=== PATIENT | female | born 1930 | race Caucasian/White ===

== ENCOUNTER 2021-12-02 08:21 | Inpatient (IN) | payer OTHER, BC ==
[2021-12-02] MEDS ORDERED: SODIUM CHLORIDE 1,000 ML IV SCH (08:30)
[2021-12-02 08:52] LABS: INR 1.07 (0.83-1.09); PROTHROMBIN TIME (PATIENT) 12.3 SEC (9.7-13.0)
[2021-12-02 08:54] LABS: ACTIVATED PTT 29.2 SECONDS (25.2-36.5)
[2021-12-02 09:00] LABS: ALBUMIN 3.6 g/dl (3.4-5.0); BILIRUBIN,TOTAL 0.8 mg/dl (0.2-1); CALCIUM 9.3 mg/dl (8.5-10); CREATININE 0.8 mg/dl (0.55-1.3); MAGNESIUM 1.8 mg/dL (1.8-2.4); PHOSPHOROUS 3.7 mg/dl (2.5-4.9); TOT PROT 6.1 g/dl (6.4-8.2)
[2021-12-02] MEDS ORDERED: SODIUM CHLORIDE 1,000 ML IV STA (09:01)
[2021-12-02 09:05] LABS: HEMATOCRIT 38.4 % (32.4-45.2); HEMOGLOBIN 13.1 G/dL (10.7-15.3); MCH 32.4 pg (25.7-33.7); MCHC 34.2 g/dl (32.0-36.0); MEAN CELL VOLUME 94.7 fl (80-96); MEAN PLT VOLUME 8.2 fl (7.5-11.1); PLATELET COUNT 213.7 10^3/uL (134-434); RBC 4.05 10^6/uL (3.60-5.2); RDW 14.2 % (11.6-15.6); WHITE BLOOD COUNT 7.5 10^3/uL (4.0-10.8)
[2021-12-02 09:58] LABS: EPITHELIAL CELLS MANY /hpf
[2021-12-02 10:16] LABS: PLATELET ESTIMATE ADEQUATE
[2021-12-02 11:49] LABS: VENOUS BASE EXCESS -1.8 mmol/L (-2-2); VENOUS O2 SATURATION 91.4 % (70-80); VENOUS PH 7.359 (7.310-7.410)
[2021-12-02 12:02] LABS: LACTIC ACID 3.1 mmol/L (0.4-2.0)
[2021-12-02 14:02] VITALS: BMI 26.2
[2021-12-02] MEDS: LACTOBACILLUS ACIDOPHILUS 1 TABLET PO SCH (16:00)
[2021-12-02] MEDS: CEFTRIAXONE 1 GM in DEXTROSE 5%-WATER - 50 ML IVPB SCH (16:00)
[2021-12-02] MEDS: CARBIDOPA/LEVODOPA 10/100 TABLET (FP) PO SCH ×2 (16:49→21:05)
[2021-12-02] MEDS: ATORVASTATIN CA 40 MG TABLET (FP) PO SCH (22:00)
[2021-12-03] MEDS: DOCUSATE SODIUM 100 MG CAPSULE (FP) PO SCH ×2 (00:03→22:01)
[2021-12-03] MEDS ORDERED: CLOPIDOGREL BISULFATE 300 MG TABLET PO ONE (07:38)
[2021-12-03] MEDS ORDERED: ASPIRIN 325 MG TABLET PO ONE (07:38)
[2021-12-03 08:42] LABS: BASO % 0.4 % (0-2.0); CALCIUM 8.6 mg/dL (8.5-10.1); EOS % 0.9 % (0-4.5); HEMATOCRIT 34.6 % (32.4-45.2); HEMOGLOBIN 11.3 GM/dL (10.7-15.3); MCHC 32.8 g/dl (32.0-36.0); MEAN CELL VOLUME 94.5 fl (80-96); MEAN PLT VOLUME 9.4 fl (7.5-11.1); MONO % 7.2 % (3.8-10.2); NEUT % 81.5 % (42.8-82.8); PLATELET COUNT 184 10^3/uL (134-434); RBC 3.66 M/mm3 (3.60-5.2); RDW 13.6 % (11.6-15.6); WHITE BLOOD COUNT 8.9 K/mm3 (4.0-10.0)
[2021-12-03 08:44] LABS: BLOOD UREA NITROGEN 19.8 mg/dL (7-18); MAGNESIUM 1.8 mg/dL (1.8-2.4)
[2021-12-03 08:47] LABS: CREATININE 0.7 mg/dL (0.55-1.3); PHOSPHOROUS 2.4 mg/dL (2.5-4.9)
[2021-12-03 08:48] LABS: BILIRUBIN,TOTAL 0.5 mg/dL (0.2-1); TOT PROT 5.7 g/dl (6.4-8.2)
[2021-12-03 08:50] LABS: N-TERMINAL BNP 895.9 pg/ml (5-450)
[2021-12-03] MEDS ORDERED: ENOXAPARIN NA (PORCINE) 40 MG/0.4 ML DISP.SYRIN SQ SCH (10:00)
[2021-12-03] MEDS: CEFTRIAXONE 1 GM in DEXTROSE 5%-WATER - 50 ML IVPB SCH (10:04)
[2021-12-03] MEDS: SERTRALINE HCL 50 MG TABLET (FP) PO SCH (10:04)
[2021-12-03] MEDS: LACTOBACILLUS ACIDOPHILUS 1 TABLET PO SCH (10:04)
[2021-12-03] MEDS ORDERED: HEPARIN NA (PORCINE) 5,000 UNITS/ML 1ML VIAL IVPUSH PRN ×2 (11:00)
[2021-12-03] MEDS: CARBIDOPA/LEVODOPA 10/100 TABLET (FP) PO SCH ×4 (11:47→22:00)
[2021-12-03] MEDS: RIVASTIGMINE 9.5 MG/24 HOURS TRANSDERMAL PATCH TD SCH (11:48)
[2021-12-03] MEDS: METOPROLOL TARTRATE 25 MG TABLET (FP) PO SCH ×3 (11:50→22:01)
[2021-12-03] MEDS: HEPARIN - 25,000 UNIT in SODIUM CHLORIDE 495 ML IV SCH ×2 (12:00→21:00)
[2021-12-03] MEDS ORDERED: LOSARTAN POTASSIUM 25 MG TABLET PO SCH (22:00)
[2021-12-03] MEDS: ATORVASTATIN CA 40 MG TABLET (FP) PO SCH (22:01)
[2021-12-04] MEDS: METOPROLOL TARTRATE 25 MG TABLET (FP) PO SCH ×2 (06:45→21:48)
[2021-12-04 07:50] LABS: BASO % 0.4 % (0-2.0); EOS % 2.2 % (0-4.5); HEMATOCRIT 33.6 % (32.4-45.2); HEMOGLOBIN 11.2 GM/dL (10.7-15.3); LYMPH % 16.5 % (8-40); MCH 30.9 pg (25.7-33.7); MCHC 33.3 g/dl (32.0-36.0); MEAN CELL VOLUME 92.9 fl (80-96); MEAN PLT VOLUME 7.9 fl (7.5-11.1); MONO % 8.5 % (3.8-10.2); NEUT % 72.4 % (42.8-82.8); PLATELET COUNT 214 10^3/uL (134-434); RBC 3.61 M/mm3 (3.60-5.2); RDW 13.6 % (11.6-15.6); WHITE BLOOD COUNT 7.7 K/mm3 (4.0-10.0)
[2021-12-04 08:17] LABS: ALBUMIN 3.1 g/dl (3.4-5.0); BLOOD UREA NITROGEN 15.3 mg/dL (7-18); CALCIUM 8.7 mg/dL (8.5-10.1); MAGNESIUM 1.8 mg/dL (1.8-2.4)
[2021-12-04 08:19] LABS: CREATININE 0.7 mg/dL (0.55-1.3); PHOSPHOROUS 2.7 mg/dL (2.5-4.9)
[2021-12-04 08:21] LABS: BILIRUBIN,TOTAL 0.5 mg/dL (0.2-1); TOT PROT 5.8 g/dl (6.4-8.2)
[2021-12-04] MEDS: SERTRALINE HCL 50 MG TABLET (FP) PO SCH (09:07)
[2021-12-04] MEDS: LACTOBACILLUS ACIDOPHILUS 1 TABLET PO SCH (09:07)
[2021-12-04] MEDS: CEFTRIAXONE 1 GM in DEXTROSE 5%-WATER - 50 ML IVPB SCH (09:07)
[2021-12-04] MEDS: CARBIDOPA/LEVODOPA 10/100 TABLET (FP) PO SCH ×4 (09:08→21:48)
[2021-12-04] MEDS: ASPIRIN COATED 81 MG TABLET.EC PO SCH (09:37)
[2021-12-04] MEDS: amLODIPine BESYLATE 5 MG TABLET (FP) PO SCH (09:37)
[2021-12-04] MEDS ORDERED: ENOXAPARIN NA (PORCINE) 40 MG/0.4 ML DISP.SYRIN SQ SCH (10:00)
[2021-12-04] MEDS: RIVASTIGMINE 9.5 MG/24 HOURS TRANSDERMAL PATCH TD SCH (11:20)
[2021-12-04] MEDS: HEPARIN - 25,000 UNIT in SODIUM CHLORIDE 495 ML IV SCH (14:43)
[2021-12-04] MEDS: LOSARTAN POTASSIUM 25 MG TABLET PO SCH (21:48)
[2021-12-04] MEDS: ATORVASTATIN CA 40 MG TABLET (FP) PO SCH (21:48)
[2021-12-04] MEDS: DOCUSATE SODIUM 100 MG CAPSULE (FP) PO SCH (21:48)
[2021-12-05 08:25] LABS: HEMATOCRIT 34.8 % (32.4-45.2); HEMOGLOBIN 11.8 GM/dL (10.7-15.3); MCH 31.7 pg (25.7-33.7); MEAN PLT VOLUME 8.8 fl (7.5-11.1); PLATELET COUNT 191 10^3/uL (134-434); RBC 3.74 M/mm3 (3.60-5.2); RDW 13.5 % (11.6-15.6); WHITE BLOOD COUNT 6.4 K/mm3 (4.0-10.0)
[2021-12-05 08:47] LABS: BLOOD UREA NITROGEN 13.9 mg/dL (7-18)
[2021-12-05 08:48] LABS: CALCIUM 8.5 mg/dL (8.5-10.1)
[2021-12-05 08:50] LABS: CREATININE 0.6 mg/dL (0.55-1.3); PHOSPHOROUS 3.5 mg/dL (2.5-4.9)
[2021-12-05] MEDS: CEFTRIAXONE 1 GM in DEXTROSE 5%-WATER - 50 ML IVPB SCH (09:37)
[2021-12-05] MEDS: amLODIPine BESYLATE 5 MG TABLET (FP) PO SCH (09:38)
[2021-12-05] MEDS: CARBIDOPA/LEVODOPA 10/100 TABLET (FP) PO SCH ×4 (09:38→22:17)
[2021-12-05] MEDS: METOPROLOL TARTRATE 25 MG TABLET (FP) PO SCH (09:38)
[2021-12-05] MEDS: ASPIRIN COATED 81 MG TABLET.EC PO SCH (09:38)
[2021-12-05] MEDS: LACTOBACILLUS ACIDOPHILUS 1 TABLET PO SCH (09:38)
[2021-12-05] MEDS: SERTRALINE HCL 50 MG TABLET (FP) PO SCH (09:38)
[2021-12-05] MEDS: RIVASTIGMINE 9.5 MG/24 HOURS TRANSDERMAL PATCH TD SCH (09:39)
[2021-12-05] MEDS: ATORVASTATIN CA 40 MG TABLET (FP) PO SCH (22:16)
[2021-12-05] MEDS: LOSARTAN POTASSIUM 25 MG TABLET PO SCH (22:16)
[2021-12-05] MEDS: APIXABAN 5 MG TABLET PO SCH (22:17)
[2021-12-05] MEDS: DOCUSATE SODIUM 100 MG CAPSULE (FP) PO SCH (22:17)
[2021-12-06] MEDS ORDERED: ATROPINE SO4 0.4 MG/1 ML VIAL IVPUSH ONE (06:52)
[2021-12-06 08:33] LABS: HEMOGLOBIN 11.5 GM/dL (10.7-15.3); MCH 31.5 pg (25.7-33.7); MCHC 33.8 g/dl (32.0-36.0); MEAN CELL VOLUME 93.1 fl (80-96); MEAN PLT VOLUME 8.2 fl (7.5-11.1); PLATELET COUNT 214 10^3/uL (134-434); RBC 3.65 M/mm3 (3.60-5.2); RDW 13.2 % (11.6-15.6); WHITE BLOOD COUNT 8.1 K/mm3 (4.0-10.0)
[2021-12-06] MEDS: LACTOBACILLUS ACIDOPHILUS 1 TABLET PO SCH (09:37)
[2021-12-06] MEDS: APIXABAN 5 MG TABLET PO SCH ×2 (09:37→22:02)
[2021-12-06] MEDS: CEFTRIAXONE 1 GM in DEXTROSE 5%-WATER - 50 ML IVPB SCH (09:38)
[2021-12-06] MEDS: CARBIDOPA/LEVODOPA 10/100 TABLET (FP) PO SCH ×4 (09:38→21:39)
[2021-12-06] MEDS: SERTRALINE HCL 50 MG TABLET (FP) PO SCH (09:38)
[2021-12-06] MEDS: DOCUSATE SODIUM 100 MG CAPSULE (FP) PO SCH (22:01)
[2021-12-06] MEDS: LOSARTAN POTASSIUM 25 MG TABLET PO SCH (22:01)
[2021-12-06] MEDS: ATORVASTATIN CA 40 MG TABLET (FP) PO SCH (22:02)
[2021-12-07] MEDS: CARBIDOPA/LEVODOPA 10/100 TABLET (FP) PO SCH ×4 (08:30→21:51)
[2021-12-07 08:33] LABS: BASO % 0.5 % (0-2.0); EOS % 1.6 % (0-4.5); HEMATOCRIT 34.8 % (32.4-45.2); LYMPH % 17.5 % (8-40); MCH 31.9 pg (25.7-33.7); MCHC 34.3 g/dl (32.0-36.0); MEAN CELL VOLUME 92.7 fl (80-96); MEAN PLT VOLUME 8.3 fl (7.5-11.1); MONO % 8.4 % (3.8-10.2); PLATELET COUNT 216 10^3/uL (134-434); RBC 3.75 M/mm3 (3.60-5.2); RDW 13.4 % (11.6-15.6); WHITE BLOOD COUNT 6.7 K/mm3 (4.0-10.0)
[2021-12-07 09:09] LABS: BLOOD UREA NITROGEN 21.5 mg/dL (7-18); CALCIUM 8.8 mg/dL (8.5-10.1); MAGNESIUM 2.2 mg/dL (1.8-2.4)
[2021-12-07 09:13] LABS: CREATININE 0.7 mg/dL (0.55-1.3)
[2021-12-07] MEDS: SERTRALINE HCL 50 MG TABLET (FP) PO SCH (10:19)
[2021-12-07] MEDS: LACTOBACILLUS ACIDOPHILUS 1 TABLET PO SCH (10:19)
[2021-12-07] MEDS: APIXABAN 5 MG TABLET PO SCH ×2 (10:19→21:52)
[2021-12-07] MEDS ORDERED: POTASSIUM CHLORIDE ORAL LIQUID 20 MEQ/15 ML PO ONE (15:39)
[2021-12-07] MEDS: ATORVASTATIN CA 40 MG TABLET (FP) PO SCH (21:52)
[2021-12-07] MEDS: DOCUSATE SODIUM 100 MG CAPSULE (FP) PO SCH (21:52)
[2021-12-07] MEDS: LOSARTAN POTASSIUM 25 MG TABLET PO SCH (21:52)
[2021-12-08 05:32] VITALS: RESP 18
[2021-12-08 08:03] LABS: HEMATOCRIT 35.6 % (32.4-45.2); HEMOGLOBIN 12.1 GM/dL (10.7-15.3); MCH 31.8 pg (25.7-33.7); MCHC 33.9 g/dl (32.0-36.0); MEAN CELL VOLUME 93.6 fl (80-96); MEAN PLT VOLUME 8.5 fl (7.5-11.1); PLATELET COUNT 214 10^3/uL (134-434); RBC 3.81 M/mm3 (3.60-5.2); RDW 13.5 % (11.6-15.6); WHITE BLOOD COUNT 6.4 K/mm3 (4.0-10.0)
[2021-12-08] MEDS: SERTRALINE HCL 50 MG TABLET (FP) PO SCH (09:51)
[2021-12-08] MEDS: LACTOBACILLUS ACIDOPHILUS 1 TABLET PO SCH (09:51)
[2021-12-08] MEDS: APIXABAN 5 MG TABLET PO SCH (09:51)
[2021-12-08] MEDS: CARBIDOPA/LEVODOPA 10/100 TABLET (FP) PO SCH ×3 (09:52→16:27)
[2021-12-08] MEDS ORDERED: LOSARTAN POTASSIUM 25 MG TABLET PO SCH (11:30)
[2021-12-08 17:47] VITALS: BP 156/72; PULSE 58; TEMP 99.2
== END 2021-12-08 20:10 | disposition short-term general hospital (02) | DRG 280 ==
LOC: FER 08:21 → FM/S 12:31 → J4W 12-03 02:15
PROVIDERS: ADMIT Internal Medicine
DX: I21.4 Non-ST elevation (NSTEMI) myocardial infarction (principal); G93.41 Metabolic encephalopathy; I44.2 Atrioventricular block, complete; I45.3 Trifascicular block; G20 Parkinson's disease; Z85.528 Personal history of other malignant neoplasm of kidney; I10 Essential (primary) hypertension; E78.5 Hyperlipidemia, unspecified; G30.9 Alzheimer's disease, unspecified; F02.80 Dementia in other diseases classified elsewhere, unspecified severity, without behavioral disturbance, psychotic disturbance, mood disturbance, and anxiety; I48.0 Paroxysmal atrial fibrillation; G90.9 Disorder of the autonomic nervous system, unspecified; M54.16 Radiculopathy, lumbar region
CPT/HCPCS: 36415; 70450-TC; 70496-TC; 70498-TC; 70551-TC; 71045-TC-FY; 80048; 80053; 81003; 81015; 82746; 82803; 82962; 83605; 83735; 83880; 84100; 84439; 84443; 84484; 85025; 85027; 85610; 85730; 87086; 93005; 93010; 93306-TC; 97116-GP; 97162-GP; 99285-25; C9803-CS; J1644; U0003; U0005